=== PATIENT | male | born 2000 | race Caucasian/White ===

== ENCOUNTER 2023-09-16 20:37 | Emergency (ER) | payer BC, SELFPAY ==
[2023-09-16 20:38] VITALS: BP 140/76
[2023-09-16 21:08] VITALS: BMI 31.6
--- NOTE | 2023-09-16 21:10 | ED.GENMED ---
History of Present Illness
General
Chief Complaint: Chest Pain
Source: patient and significant other
Exam Limitations: none
Time Seen by Provider: 09/16/23 21:02
Nursing documentation reviewed up to this point in time: agreed with
History of Present Illness
History of Present Illness:
23 yo male presents to the emergency department c/o chest pain since 11 AM. Has been constant all day worse initially. It hurts when he moves his arms. He also noted some pain in his jaw and posterior neck.
Past History
Past History
ED Past Medical History: None
ED Past Surgical History: None
Social History
Tobacco: Non-smoker
Alcohol: None
Drug: None
Personal: Single
Living: with family
Employment: Employed (Construction)
Family History
Family History: Negative Early CAD or Sudden
Review of Systems
Review of Systems
Allergies reviewed?: Yes
All Other Systems: Not applicable
Constitutional: Reports no symptoms
EENT: Reports mouth pain
Respiratory: Reports no symptoms
Cardiac: Reports chest pain
ABD/GI: Reports no symptoms
: Reports no symptoms
Musculoskeletal: Reports neck pain
Skin: Reports no symptoms
Neurological: Reports no symptoms
Endocrine: Reports no symptoms
Hematologic/Lymphatic: Reports no symptoms
Psychiatric: Reports no symptoms
Phy Exam
Physical Exam
Physical Exam:
Physical Exam
General: no apparent distress, not acutely ill
Neck: supple. no meningeal signs. normal posterior pharynx
Heart: s1/s2 regular rate and rhythm, no murmur. equal radial
pulses.
HEENT: Pupils equal round reactive to light, EOMI
Lungs: no acute respiratory distress. clear bilaterally, chest wall tender to palpation, reproducing pain
Abdomen: normal bowel sounds. not tender. no CVAT
Neuro: alert and oriented. no focal neurological deficits cranial nerves II through XII intact
Skin: no rash
Psychiatric: well kept. interactive and cooperative
Extremities: no edema. no calf tenderness. negative homans. good distal pulses
Scores
Heart Score for Chest Pain Patients
STEMI patient?: Not applicable
Course
Orders/Labs/Results
Orders:
Orders
09/16/23 20:40
Electrocardiogram (*1) Urgent
Reason for Study: Chest Pain
09/16/23 20:41
EKG- Treatment ONCE
09/16/23 21:09
CR Chest - 2 Views Urgent
Comment:
Reason For Exam: chest pain
Vital Signs
Initial and Last Documented VS:
Initial Vital Signs
Temp Pulse Resp BP Pulse Ox
98.3 F 55 18 140/76 98
09/16/23 20:38 09/16/23 20:38 09/16/23 20:38 09/16/23 20:38 09/16/23 20:38
Last Documented Vital Signs
Temp Pulse Resp BP Pulse Ox
98.3 F 66 21 135/74 96
09/16/23 20:38 09/16/23 21:45 09/16/23 21:45 09/16/23 21:41 09/16/23 21:45
MDM/Problems Addressed
Differential Diagnosis Includes:
Pneumothorax, chest wall pain, ACS
MDM/Problems Addressed:
23-year-old male with chest wall pain. Do not suspect ACS or PE. Normal EKG. Follow-up with primary care. Return precautions given.
*Radiology
Radiology exam reviewed: radiology read reviewed (cxr nad)
*Pulse Oximetry
Patient hypoxic: no
*EKG
Interpreted by ED Provider?: Yes
EKG Intrepretation Date: 09/16/23
EKG Intrepretation Time: 20:49
Interpretation: normal
Comparison EKG: no comparison EKG present
Heart Rate: 64
Rate: normal
Rhythm: sinus and sinus arrhythmia
Olga: normal axis
Interval: normal interval
QRS Pattern: normal QRS
Ischemia: no ischemia
*[employer] Interpretation
Rate: normal
Interpretation: normal
Heart Rate: 66
Rhythm: sinus
*Critical Care Note
Total Time (30-74mins, 75-104mins- exclusive of procedures): Not Applicable
ED Attending Note
-
Portions of this chart may have been created with voice recognition software.� Occasional wrong word or��sound alike� substitutions may have occurred due to the inherent limitations of voice recognition software.
Discharge Plan
Departure
Patient Disposition: Home (Routine Discharge)
Date of Disposition: 09/16/23
Time of Disposition: 21:58
Patient with high blood pressure during this ER visit?: Yes
Condition: Good
Discharge Problem:
Acute chest wall pain
Instructions: Chest Pain That Is Not Caused by the Heart (DC), BLOOD PRESSURE
Prescriptions:
No Action
No Current Medications
0
Activity Restrictions/Additional Instructions:
Follow up with primary care in 3-5 days. Return for any concerns.
Interventions
Interventions:
*Risk Screen - Suicide Last Done: 09/16/23 20:38
*General Assessment Last Done: 09/16/23 21:08
*Neglect/Abuse Screening Last Done: 09/16/23 20:38
ED- Fall Risk Assessment Last Done: 09/16/23 21:08
*ED COVID-19 Vaccine History Last Done: 09/16/23 21:08
ED- Cardiac Assessment Last Done: 09/16/23 21:05
Discharge Date and Time
Print Language: [id number]
[2023-09-16 21:16] VITALS: BP 115/67
[2023-09-16 21:41] VITALS: BP 135/74
[2023-09-16 22:00] VITALS: BP 134/72
== END 2023-09-16 22:11 | disposition home or self-care (01) ==
LOC: EMR 20:37
PROVIDERS: EMERGENCY PHYSICIAN Emergency Medicine; FAMILY PHYSICIAN Family Medicine
DX: R07.89 Other chest pain (principal)
CPT/HCPCS: 99284; 71046; 93005